=== PATIENT | female | born 1975 | race Caucasian/White ===

== ENCOUNTER 2017-01-12 02:28 | Day surgery (SDC) | payer OTHER ==
[2017-01-10 08:27] VITALS: BP 113/68
[2017-01-10 08:57] LABS: BASOPHIL % 0.1 % (0.0-0.2); EOSINOPHIL # 0.1 10^3/uL (0.0-0.2); EOSINOPHIL % 1.3 % (0.0-5.0); HEMOGLOBIN 13.3 g/dL (12.0-15.0); LYMPHOCYTES # 2.5 10^3/uL (1.0-4.8); LYMPHOCYTES % 23.6 % (24.0-44.0); MEAN CELL HGB 28.7 pg (26-34); MEAN CELL HGB CONCENTRATION 32.4 g/dL (33-37); MEAN CORP VOLUME 88.4 fL (78-100); MEAN PLATELET VOLUME 9.8 fL (7.8-11.0); MONOCYTES # 0.9 10^3/uL (0.3-0.8); MONOCYTES % 8.2 % (5.0-12.0); NEUTROPHIL # 6.9 10^3/uL (1.8-7.7); NEUTROPHILS % 66.6 % (41.0-85.0); RED CELL DISTRIBUTION WIDTH 13.7 % (11.5-14.5); WHITE BLOOD CELL 10.4 10^3/uL (4.5-11.0)
[2017-01-10 09:21] LABS: CALCIUM 8.8 mg/dL (8.4-10.5); CARBON DIOXIDE 24.9 mmol/L (20.0-32)
[~2017-01-12] VITALS: Ht 170.2 cm; Wt 112.9 kg
[~2017-01-12 02:28] MED LIST: LEVO200T PO; MONT10TA6 PO
[2017-01-12] MEDS ORDERED: NS 100ML 100 ML IV ONE (05:23)
[2017-01-12] MEDS ORDERED: LACTATED RINGERS 1,000 ML ONE ×2 (05:23→09:01)
[2017-01-12] MEDS ORDERED: ANCEF ONE (05:24)
[2017-01-12] MEDS ORDERED: LOVENOX SQ ONE (05:24)
[2017-01-12] MEDS ORDERED: LACTATED RINGERS 1,000 ML IV SCH (06:00)
[2017-01-12] MEDS ORDERED: LOVENOX SQ SCH (06:00)
[2017-01-12] MEDS ORDERED: ANCEF IV ONE (06:00)
[2017-01-12 06:52] VITALS: BP 138/73
[2017-01-12] MEDS ORDERED: XYLOCAINE ONE (08:19)
[2017-01-12] MEDS ORDERED: VERSED ONE (08:19)
[2017-01-12] MEDS ORDERED: SUBLIMAZE ONE (08:19)
[2017-01-12] MEDS ORDERED: DIPRIVAN IV ONE (08:20)
[2017-01-12] MEDS ORDERED: SODIUM CHLORIDE IR ONE (08:26)
[2017-01-12] MEDS ORDERED: SENSORCAINE-EPI 0.25%-0.0005 ONE (08:26)
[2017-01-12 09:04] VITALS: BP 133/63
[2017-01-12 09:19] VITALS: BP 119/71
[2017-01-12] MEDS ORDERED: NORCO 7.5MG PO PRN (09:30)
[2017-01-12] MEDS ORDERED: ZOFRAN IV PRN (09:30)
[2017-01-12] MEDS ORDERED: MORPHINE SULFATE IV PRN (09:30)
[2017-01-12 09:34] VITALS: BP 127/60
[2017-01-12 09:49] VITALS: BP 107/57
--- NOTE | 2017-01-12 12:01 | OPH ---
DATE OF SURGERY: PREOPERATIVE DIAGNOSIS: Soft tissue lesion of the right buttocks. POSTOPERATIVE DIAGNOSIS: Soft tissue lesion of the right buttocks. SURGEON: Ananda Srinivasan DO PROFESSIONAL BONDSMAN: OR staff. ANESTHESIA: Monitored anesthesia care by Ms. Thomas CRNA plus local used on the field. PROCEDURES PERFORMED: 1. Excision of soft tissue lesion. 2. Intermediate level layered closure of defect, it is 1.2 x 1.7 x 0.5 cm. SPECIMENS: Soft tissue lesion to path. ESTIMATED BLOOD LOSS: 10 mL. COUNTS: At completion of the case, the counts were correct per OR staff. DESCRIPTION OF PROCEDURE: The patient is a 41-year-old female known from previous consult. Prior to procedure, informed consent was obtained. At time of procedure, she was taken to the operative suite and placed in supine position. After time-out, she was placed in the right lateral recumbent position. After adequate sedation, she was prepped and draped. Local was used to anesthetize the area. Scalpel was used to make an elliptical excision of the skin overlying the lesion area of concern. Electrocautery was used to control bleeding, to dissect down around the lesion from the surrounding tissues and separate out, remove it. It appears to be a fatty tumor. The wound bed base was noted to have little retained tissue which was removed with electrocautery. Any bleeding identified was controlled with electrocautery. After meticulous hemostasis noted, the area was irrigated and closure was pursued after measurements were obtained. The deep tissues in the subcutaneous were closed with interrupted 3-0 Vicryl. The skin was closed with 4-0 Monocryl in interrupted subcutaneous fashion. The patient is cleaned. Steri-Strips were applied. Dressings applied. Drapes removed. The patient tolerated this procedure well. There were no acute complications noted. Ananda Srinivasan DO DR: ZAYDA/carmencita JOB# [id number] CC: Gloria Godinez MD
== END 2017-01-12 10:05 | disposition home or self-care (01) ==
LOC: SDC 02:28
PROVIDERS: ATTEND Surgery
DX: M79.89 Other specified soft tissue disorders (principal); Z85.850 Personal history of malignant neoplasm of thyroid; E89.0 Postprocedural hypothyroidism
CPT/HCPCS: 21930; 36415; 80053; 84703; 85025; 85610; 85730; J0690; J1650; J2250; J3010; J3490; J7030; J7120 ×2; 81025

== ENCOUNTER → 2017-01-23 | Outpatient (CLI) | payer OTHER ==
--- NOTE | 2017-01-23 17:13 | DIREP ---
PROCEDURE:MAMMO BILATERAL SCREENING TECHNIQUE:MLO and CC digital images of each breast are provided. Computer Assisted Detection (CAD) was utilized. COMPARISON:None. INDICATIONS:SCREENING BREAST COMPOSITION:There are scattered areas of fibroglandular density. FINDINGS:There are no visible suspicious masses, clustered calcifications or architectural changes to suggest malignancy. CONCLUSION:There is no mammographic evidence of malignancy. RECOMMENDATIONS:Routine age-appropriate screening. OVERALL FINAL ASSESSMENT:BI-RADS 1: Negative Note: This facility participates in a mammography screening patient reminder system. COMMENT: The mammogram shows dense breast tissue. Dense breast tissue is very common and is not abnormal but dense breast tissue can make it harder to find cancer on a mammogram. Also, dense breast tissue may increase breast cancer risk. Dictated by: Gilberto Barraza M.D. on 01/23/2017 at 05:05 PM
== END | disposition home or self-care (01) ==
LOC: RAD 16:33
PROVIDERS: ATTEND Family Medicine
DX: Z12.31 Encounter for screening mammogram for malignant neoplasm of breast (principal)
CPT/HCPCS: G0202; 77067

== ENCOUNTER → 2017-11-02 | Outpatient (CLI) | payer OTHER | END | disposition home or self-care (01) | LOC: LAB 20:45 | PROVIDERS: ATTEND Pediatrics | DX: E03.9 Hypothyroidism, unspecified (principal) | CPT/HCPCS: 36415; 84439; 84443 ==

== ENCOUNTER → 2017-12-27 | Outpatient (CLI) | payer OTHER ==
[2017-12-27 21:33] LABS: BASOPHIL % 0.1 % (0.0-0.2); EOSINOPHIL # 0.1 10^3/uL (0.0-0.2); EOSINOPHIL % 1.7 % (0.0-5.0); HEMOGLOBIN 13.9 g/dL (12.0-15.0); LYMPHOCYTES # 2.3 10^3/uL (1.0-4.8); LYMPHOCYTES % 28.2 % (24.0-44.0); MEAN CELL HGB 29.6 pg (26-34); MEAN CELL HGB CONCENTRATION 32.8 g/dL (33-37); MEAN CORP VOLUME 90.4 fL (78-100); MEAN PLATELET VOLUME 9.5 fL (7.8-11.0); MONOCYTES # 0.6 10^3/uL (0.3-0.8); MONOCYTES % 7.6 % (5.0-12.0); NEUTROPHIL # 5.1 10^3/uL (1.8-7.7); NEUTROPHILS % 62.2 % (41.0-85.0); RED CELL DISTRIBUTION WIDTH 13.7 % (11.5-14.5); WHITE BLOOD CELL 8.2 10^3/uL (4.5-11.0)
[2017-12-27 21:55] LABS: CALCIUM 8.7 mg/dL (8.4-10.5); CARBON DIOXIDE 28.8 mmol/L (20.0-32)
== END | disposition home or self-care (01) ==
LOC: LAB 21:00
PROVIDERS: ATTEND Pediatrics
DX: E03.8 Other specified hypothyroidism (principal)
CPT/HCPCS: 36415; 80053; 80061; 84439; 84443; 85025

== ENCOUNTER → 2018-05-11 | Outpatient (CLI) | payer OTHER | END | disposition home or self-care (01) | LOC: LAB 06:23 | PROVIDERS: ATTEND Pediatrics | DX: E03.9 Hypothyroidism, unspecified (principal) | CPT/HCPCS: 36415; 84439; 84443 ==

== ENCOUNTER → 2018-12-07 | Outpatient (CLI) | payer OTHER | END | disposition home or self-care (01) | LOC: LAB 06:00 | PROVIDERS: ATTEND Nurse Practitioner Family | DX: E03.9 Hypothyroidism, unspecified (principal) | CPT/HCPCS: 36415; 84439; 84443 ==

== ENCOUNTER → 2019-09-04 | Outpatient (CLI) | payer OTHER | END | disposition home or self-care (01) | LOC: LAB 15:08 | PROVIDERS: ATTEND Nurse Practitioner Family | DX: E03.9 Hypothyroidism, unspecified (principal); Z88.1 Allergy status to other antibiotic agents | CPT/HCPCS: 36415; 83036; 84443 ==

== ENCOUNTER → 2019-10-31 | Outpatient (CLI) | payer OTHER | END | disposition home or self-care (01) | LOC: LAB 02:55 | PROVIDERS: ATTEND Surgery | DX: Z01.84 Encounter for antibody response examination (principal) | CPT/HCPCS: 36415; 86706; 86735; 86762; 86765; 86787 ==

== ENCOUNTER 2020-01-29 07:30 | Emergency (ER) | payer OTHER ==
[~2020-01-29] VITALS: Ht 172.7 cm; Wt 108.9 kg
[2020-01-29 07:35] VITALS: BP 144/84
[2020-01-29 07:47] VITALS: BP 144/84
--- NOTE | 2020-01-29 07:49 | ER.PDOC ---
General Chief Complaint: Requesting Medical Care Stated Complaint: RIGHT FOOT INJURY Time seen by MD: 07:41 Source: patient Exam Limitations: no limitations History of Present Illness Initial Comments Patient caught 4th toe of right foot on furniture about 1 week ago and has had pain with ambulation since. Onset: last week Where: home Severity: moderate Context: barefoot Modifying Factors: pain on movement Allergies: Coded Allergies: azithromycin (Verified Allergy, Severe, SEVERE VOMITING, 01/10/17) Home Meds Reported Medications Montelukast Sodium (SINGULAIR) 10 Mg Tablet, 1 TAB PO DAILY, #90 TAB 1 Refill 01/10/17 Levothyroxine Sodium (SYNTHROID) 200 Mcg Tablet, 1 TAB PO DAILY, #30 TAB 5 Refills 01/10/17 Past Medical History Medical History: thyroid disease LMP (females 10-50): Merena (does not menstrua Review of Systems Constitutional: no symptoms reported EENTM: no symptoms reported Respiratory: no symptoms reported Cardiovascular: no symptoms reported Gastrointestinal: no symptoms reported Musculoskeletal: see HPI Skin: no symptoms reported Physical Exam General Appearance: Alert, No Apparent Distress Foot: tenderness (4th toe), ecchymosis (2nd toe) Ankle: nml inspection Gait: limited by pain Neuro: sensation nml, motor nml Vascular: no vascular compromise Leg/Knee/Thigh: uninjured above ankle Skin: warm/dry Head/ENT: nml inspection Resp/CVS: no resp distress, lungs clear, heart sounds nml, reg. rate & rhythm Results/Orders Results/Orders Orders - LASHAUN SUNSHINE DO Xr Foot Rt (01/29/20 07:46) Vital Signs Date Time Temp Pulse Resp B/P (MAP) Pulse Ox O2 Delivery O2 Flow Rate FiO2 01/29/20 07:47 97.7 65 16 144/84 (104) 99 Room Air 01/29/20 07:47 97.7 65 16 144/84 (104) 99 Room Air 01/29/20 07:35 97.7 65 16 01/29/20 07:35 97.7 65 16 99 EKG/XRAY/CT/US XRAY Comments: foot: spiral fx 1st metatarsal right 4th Departure Time of Disposition: 08:09 Disposition: 01 HOME, SELF-CARE Impression: Primary Impression: Toe fracture, right Condition: Stable Patient Instructions: Toe Fracture Referrals: RAFIA VENEGAS MD (PCP) PRIMARY CARE PROVIDER Additional Instructions: Maintain boot for support and comfort. Anthony tape 3rd/4th toes. Ice/elevate. Return to ER for worsening symptoms or any other concerns. Duration or Time Spent with Pa: 20 min Problem Qualifiers Primary Impression: Toe fracture, right Encounter type: initial encounter Toe: lesser toe Fracture type: closed Phalanx: proximal Fracture alignment: nondisplaced Qualified Codes: S92.514A - Nondisplaced fracture of proximal phalanx of right lesser toe(s), initial encounter for closed fracture LASHAUN SUNSHINE DO Jan 29, 2020 07:49
--- NOTE | 2020-01-29 08:14 | DIREP ---
PROCEDURE:XRAY FOOT MIN 3 VWS-RT COMPARISON:None. INDICATIONS:injury FINDINGS: BONES:Essentially nondisplaced spiral fracture 4th proximal phalanx. JOINTS:Hallux valgus with 1st metatarsal phalangeal angle measuring 27. Mild underlying 1st MTP joint degenerative changes. Lisfranc alignment within normal limits. SOFT TISSUES:4th toe soft tissue swelling. OTHER:No additional findings. CONCLUSION: 1. Fourth proximal phalanx fracture. 2. Hallux valgus. Dictated by: Lucio Roland M.D. on 01/29/2020 at 08:11 AM
--- NOTE | 2020-01-29 08:25 | NUR ---
WALKING BOOT WALKING BOOT APPLIED TO PT PER DR JONG HIDALGO.
== END 2020-01-29 08:33 | disposition home or self-care (01) ==
LOC: ER 07:30
DX: S92.514A Nondisplaced fracture of proximal phalanx of right lesser toe(s), initial encounter for closed fracture (principal); Z79.899 Other long term (current) drug therapy; Z88.1 Allergy status to other antibiotic agents; W23.0XXA Caught, crushed, jammed, or pinched between moving objects, initial encounter; Y93.89 Activity, other specified; Y92.89 Other specified places as the place of occurrence of the external cause; Y99.8 Other external cause status
CPT/HCPCS: 99283; 73630-RT

== ENCOUNTER → 2020-02-19 | Outpatient (CLI) | payer OTHER ==
--- NOTE | 2020-02-19 22:52 | DIREP ---
PROCEDURE:CHEST 2 VIEWS COMPARISON:None. INDICATIONS:PALPITATIONS, MALASE FINDINGS: LUNGS/PLEURA:No significant pulmonary parenchymal abnormalities. No effusions. VASCULATURE:Normal. Unremarkable pulmonary vasculature. CARDIAC:Normal. No cardiac silhouette abnormality or cardiomegaly. MEDIASTINUM:Normal. No visible mass or adenopathy. BONES:Normal. No fracture or visible bony lesion. OTHER:Negative. CONCLUSION: 1. No acute cardiopulmonary disease demonstrated. Dictated by: Lorenzo Conde M.D. on 02/19/2020 at 10:50 PM
[2020-02-19 23:05] LABS: MEAN CORP HGB 29.5 pg (26-34); RED CELL DISTRIBUTION WIDTH 13.7 % (11.5-14.5)
[2020-02-19 23:25] LABS: ALANINE AMINOTRANSFERASE(ML) 28 U/L (12-78); ALKALINE PHOSPHATASE 78 U/L (50-136); ASPARTATE AMINO TRANSFERASE 13 U/L (0-35); CALCIUM 8.4 mg/dL (8.4-10.5); CHOLESTEROL 181 mg/dL (120-240); GLUCOSE 123 mg/dL (70-110); HDL CHOLESTEROL 40 mg/dL (32-96)
--- NOTE | 2020-02-20 07:05 | PCM.EKG ---
[facility] Test Date: 2020-02-19 Test Time: 23:28:50 Pat Name: CELIA RODRIGUEZ Department: Room: Gender: F Healthcare Sales Representative: REHAN : 1975 Requested By: JOSE LUIS BEACH Order Number: [id number] Reading MD: Measurements Intervals [place] Rate: 76 P: 66 VT: 156 QRS: 61 QRSD: 88 T: 50 QT: 412 QTc: 464 Interpretive Statements Sinus rhythm Low voltage, precordial leads No previous ECG available for comparison Please click the below link to view image of tracing.
== END | disposition home or self-care (01) ==
LOC: RAD 22:31
PROVIDERS: ATTEND Nurse Practitioner Family
DX: E03.9 Hypothyroidism, unspecified (principal); R00.2 Palpitations; R53.83 Other fatigue; R53.81 Other malaise
CPT/HCPCS: 36415; 71046; 80053; 80061; 82550; 83880; 84439; 84443; 84480; 84484; 85027; 93005

== ENCOUNTER → 2020-03-23 | Outpatient (CLI) | payer OTHER ==
--- NOTE | 2020-03-25 18:01 | STRESS ---
DATE OF SERVICE: 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 Physical activity is normal. 12-lead EKG: Regular sinus rhythm, poor R-wave progression, V1 through V2, nonspecific ST-T wave changes. Resting heart rate 72, maximum predicted 175. The patient is on medication, Hallam Thyroid 240 mg once a day and Cymbalta 60 mg once a day, Darby-D one tablet daily. The patient went up to 7 minutes and 45 seconds on regular Noel protocol, had no chest pain and no ST segment changes, achieved a heart rate of 171 and a peak systolic blood pressure of 190/85. Normal myocardial perfusion scan with good global perfusion without any provoked ischemic manifestations with a TID of 0.96 and ejection fraction of 73% and normal end-diastolic volume. Hence, normal exercise tolerance test, normal myocardial perfusion scan with no evidence of ischemia documented. Reid Rojas MD DR: ISABEL/carmencita JOB# [id number]
== END | disposition home or self-care (01) ==
LOC: RAD 08:20
PROVIDERS: ATTEND Specialist
DX: I20.9 Angina pectoris, unspecified (principal); R00.2 Palpitations; R06.00 Dyspnea, unspecified; R00.0 Tachycardia, unspecified
CPT/HCPCS: 78452; 93017; 93306; A9500